=== PATIENT | female | born 1985 | race Caucasian/White ===

== ENCOUNTER 2022-06-15 13:20 | Outpatient (CLI) | payer OTHER, SELFPAY ==
[2022-06-15 17:21] LABS: Chloride* 106 mmol/L (96-114)
[2022-06-15 17:22] LABS: Potassium* 4.7 mmol/L (3.6-5.1); Sodium* 139 mmol/L (135-149)
[2022-06-15 17:24] LABS: Cholesterol* 198 mg/dL (90-199)
[2022-06-15 17:25] LABS: Blood Urea Nitrogen* 8 mg/dL (5-24); Carbon Dioxide* 26 mmol/L (20-32); Creatinine* 0.7 mg/dL (0.5-1.5); Estimated Glomerular Filt Rate 114 ml/min; Glucose* 96 mg/dL (60-115); Triglycerides* 153 mg/dL (40-149)
[2022-06-15 17:26] LABS: Calcium* 9.5 mg/dL (8.4-10.6); HDL Cholesterol* 72 mg/dL (>=50); LDL Cholesterol Calculated 95 mg/dL (<100)
== END 2022-06-15 13:21 | disposition home or self-care (01) ==
PROVIDERS: Visit Provider Family Medicine
DX: Z13.29 Encounter for screening for other suspected endocrine disorder (principal); Z13.1 Encounter for screening for diabetes mellitus; Z13.6 Encounter for screening for cardiovascular disorders
CPT/HCPCS: 80048; 80061; 84439; 84443

== ENCOUNTER 2022-07-15 13:29 | Outpatient (CLI) | payer OTHER, SELFPAY | END 2022-07-15 13:30 | disposition home or self-care (01) | LOC: LONREF 13:30 | PROVIDERS: Visit Provider Nurse Practitioner Family | DX: Z01.818 Encounter for other preprocedural examination (principal); E66.9 Obesity, unspecified | CPT/HCPCS: 80048 ==

== ENCOUNTER 2023-05-03 17:20 | Outpatient (CLI) | payer BC, SELFPAY ==
--- NOTE | 2023-05-03 18:00 | CRLHL7_ITS ---
For Patients: As a result of the Century Cures Act, medical imaging exams and procedure reports are released immediately into your electronic medical record. You may view this report before your referring provider. If you have questions, please contact your health care provider. INDICATION: Right foot pain. COMPARISON: None. TECHNIQUE: A compression venous ultrasound exam was performed of the right lower extremity using flores-scale imaging, color Doppler and spectral Doppler analysis. FINDINGS: Sonographic imaging of the right lower extremity demonstrates normal compressibility and color Doppler venous blood flow within the common femoral, femoral, popliteal, and peroneal veins. The greater saphenous, deep femoral, and posterior tibial veins demonstrate normal compressibility. Limited imaging of the contralateral groin demonstrates a normal spectral waveform and color Doppler venous blood flow within the left common femoral vein. IMPRESSION: Negative for acute DVT in the right lower extremity. Dictated by Desire Glass MD @ 05/04/2023 2:44:52 AM (Electronically Signed)
== END 2023-05-03 17:21 | disposition home or self-care (01) ==
LOC: US 17:21
PROVIDERS: Visit Provider Family Medicine
DX: M79.671 Pain in right foot (principal)
CPT/HCPCS: 93971

== ENCOUNTER 2023-05-04 11:03 | Outpatient (CLI) | payer BC, SELFPAY | END 2023-05-04 11:04 | disposition home or self-care (01) | PROVIDERS: Visit Provider Family Medicine | DX: K52.9 Noninfective gastroenteritis and colitis, unspecified (principal); Z13.220 Encounter for screening for lipoid disorders; Z13.228 Encounter for screening for other metabolic disorders | CPT/HCPCS: 80053; 80061; 84443; 86231 ==

== ENCOUNTER 2023-05-10 08:08 | Outpatient (CLI) | payer BC, SELFPAY ==
--- NOTE | 2023-05-10 08:15 | CRLHL7_ITS ---
For Patients: As a result of the Century Cures Act, medical imaging exams and procedure reports are released immediately into your electronic medical record. You may view this report before your referring provider. If you have questions, please contact your health care provider. INDICATION: Chronic diarrhea COMPARISON: none TECHNIQUE: Real time flores scale imaging and color Doppler analysis was performed of the right upper quadrant. FINDINGS: The patient`s liver is of normal size and has uniform echogenicity. There is a normal appearance of the hepatic IVC and proximal abdominal aorta. There is no evidence of ascites. The gallbladder is of normal size and there is no evidence of intraluminal stones or sludge. The gallbladder wall measures 2 mm in thickness. The common bile duct is of normal size and measures 4 mm in diameter at the level of the chinedu hepatis. The pancreas appears normal. There is no evidence of a stone or hydronephrosis within the right kidney. The right kidney measures 12.1 cm in length. IMPRESSION: Normal right upper quadrant ultrasound. Dictated by Renny Monique MD @ 05/10/2023 11:51:51 AM (Electronically Signed)
== END 2023-05-10 08:09 | disposition home or self-care (01) ==
LOC: US 08:09
PROVIDERS: PCP Family Medicine; Visit Provider Family Medicine
DX: K52.9 Noninfective gastroenteritis and colitis, unspecified (principal)
CPT/HCPCS: 76705

== ENCOUNTER 2023-05-12 13:07 | Outpatient (CLI) | payer BC, SELFPAY | END 2023-05-12 13:08 | disposition home or self-care (01) | LOC: NFLDREF 05-13 11:12 | PROVIDERS: PCP Family Medicine; Referring Provider Family Medicine; Visit Provider Family Medicine | DX: K52.9 Noninfective gastroenteritis and colitis, unspecified (principal) | CPT/HCPCS: 87493; 87505 ==

== ENCOUNTER 2023-06-17 08:32 | Outpatient (CLI) | payer BC, SELFPAY ==
--- NOTE | 2023-06-17 09:59 | W.ANESCHARGE ---
Anesthesia Charges Start Date/Time Anesthesia Start Date: 06/17/23 Anesthesia Start Time: 09:43 Stop Date/Time Anesthesia Stop Date: 06/17/23 Anesthesia Stop Time: 10:06
--- NOTE | 2023-06-17 10:09 | W.ANESCHARGE ---
Anesthesia Charges Start Date/Time Anesthesia Start Date: 06/17/23 Anesthesia Start Time: 09:43 Stop Date/Time Anesthesia Stop Date: 06/17/23 Anesthesia Stop Time: 10:06
== END 2023-06-17 08:33 | disposition home or self-care (01) ==
PROVIDERS: PCP Family Medicine; Visit Provider Internal Medicine
DX: R10.84 Generalized abdominal pain (principal)
CPT/HCPCS: 00811; 45380; 88305; J2704

== ENCOUNTER 2023-07-27 19:55 | Outpatient (CLI) | payer BC, SELFPAY ==
--- NOTE | 2023-08-10 13:07 | W.PM.SLEEP ---
Sleep Study Details Details Interpreting Provider: Bird Date of Sleep Study: 07/27/23 Sleep Study Details: STUDY TYPE:? Home unattended ? BMI:? 40.8 ORDERING PROVIDER:Eliseo Narvaez INDICATION:? Concerns about sleep apnea ? SLEEP SUMMARY:? 604 minutes monitored RESPIRATORY SUMMARY:? AHI 9 Low oxygen 84 2.9% of study oxygen less than 90% Snoring 80.3% PERIODIC LIMB MOVEMENTS OF SLEEP:? Not recorded during home study CARDIAC:? Range 45-113, mean 58.8 IMPRESSION:? Mild obstructive sleep apnea RECOMMENDATION: Treatment options include CPAP dental appliance weight loss and/or airway expansion surgery.
== END 2023-07-27 19:56 | disposition home or self-care (01) ==
LOC: SLEEP 19:55
PROVIDERS: PCP Family Medicine; Visit Provider Family Medicine
DX: G47.33 Obstructive sleep apnea (adult) (pediatric) (principal)
CPT/HCPCS: 95806

== ENCOUNTER 2023-09-08 10:26 | Outpatient (CLI) | payer BC, SELFPAY | END 2023-09-08 10:27 | disposition home or self-care (01) | PROVIDERS: PCP Family Medicine; Visit Provider Family Medicine | DX: R00.0 Tachycardia, unspecified (principal) | CPT/HCPCS: 84443 ==

== ENCOUNTER 2023-10-06 08:33 | Outpatient (CLI) | payer BC, SELFPAY ==
--- NOTE | 2023-10-06 08:45 | CRLHL7_ITS ---
For Patients: As a result of the Cures Act, medical imaging exams and procedure reports are released immediately into your electronic medical record. You may view this report before your referring provider. If you have questions, please contact your health care provider. DIGITAL DIAGNOSTIC BILATERAL MAMMOGRAM USING TOMOSYNTHESIS AND COMPUTER-AIDED DETECTION LEFT BREAST ULTRASOUND CLINICAL HISTORY: LEFT breast lump. COMPARISON: None. TECHNIQUE: Digital BILATERAL mammogram in four projections with computer-aided detection. Tomosynthesis was used in this interpretation. Real-time ultrasound imaging of LEFT breast with imaging documentation. BREAST COMPOSITION: There are areas of scattered fibroglandular density. FINDINGS: 3D CC/MLO BILATERAL mammogram images submitted. No suspicious mass or architectural distortion. No suspicious calcifications or adenopathy. Targeted LEFT breast ultrasound performed at 3 o`clock 4 cm from the nipple. In this location, there is a small ovoid hypoechoic cystic area located within the epidermal layer measuring 10 x 4 x 7 millimeters. IMPRESSION: Epidermal cyst measuring 10 x 4 x 7 millimeters LEFT breast 3 o`clock 4 cm from the nipple. No suspicious findings. No evidence of malignancy. RECOMMENDATIONS: Clinical follow-up. Age-appropriate screening mammography. Results and recommendations discussed with the patient. BI-RADS Category 2: Benign A lay language report of this examination will be provided to the patient. Dictated by Renny Monique MD @ 10/06/2023 10:13:22 AM /Dictated by: Renny Monique MD @ 10/06/2023 10:13:00 AM (Electronically Signed)
--- NOTE | 2023-10-06 09:15 | CRLHL7_ITS ---
For Patients: As a result of the Cures Act, medical imaging exams and procedure reports are released immediately into your electronic medical record. You may view this report before your referring provider. If you have questions, please contact your health care provider. PLEASE SEE DIGITAL DIAGNOSTIC BILATERAL MAMMOGRAM PERFORMED THE SAME DAY. CRL:[email or web address] silvestre/Dictated by: Renny Monique MD @ 10/06/2023 10:13:00 AM SP/Dictated by: Renny Monique MD @ 10/06/2023 10:13:00 AM (Electronically Signed)
== END 2023-10-06 08:34 | disposition home or self-care (01) ==
LOC: MAMMO 08:34
PROVIDERS: PCP Family Medicine; Visit Provider Family Medicine
DX: N63.20 Unspecified lump in the left breast, unspecified quadrant (principal); N60.02 Solitary cyst of left breast
CPT/HCPCS: 76642; 77066; G0279

== ENCOUNTER 2023-11-14 08:51 | Outpatient (CLI) | payer BC, SELFPAY | END 2023-11-14 08:52 | disposition home or self-care (01) | LOC: RAD 08:52 | PROVIDERS: PCP Family Medicine; Visit Provider Internal Medicine | DX: R00.0 Tachycardia, unspecified (principal); I35.1 Nonrheumatic aortic (valve) insufficiency; I34.0 Nonrheumatic mitral (valve) insufficiency; R00.2 Palpitations | CPT/HCPCS: 93306 ==

== ENCOUNTER 2024-05-25 12:04 | Outpatient (CLI) | payer BC, SELFPAY ==
[2024-05-28 20:47] LABS: HPV Source Cervical; HPV, High Risk by TMA Not Detected
== END 2024-05-25 12:05 | disposition home or self-care (01) ==
PROVIDERS: PCP Family Medicine; Visit Provider Obstetrics & Gynecology
DX: Z12.4 Encounter for screening for malignant neoplasm of cervix (principal); Z11.51 Encounter for screening for human papillomavirus (HPV)
CPT/HCPCS: 87624; 87625; 88141; 88142

== ENCOUNTER 2024-06-11 15:56 | Outpatient (CLI) | payer BC, SELFPAY | END 2024-06-11 15:57 | disposition home or self-care (01) | PROVIDERS: PCP Family Medicine; Visit Provider Family Medicine | DX: I10 Essential (primary) hypertension (principal); F33.9 Major depressive disorder, recurrent, unspecified; Z13.6 Encounter for screening for cardiovascular disorders; Z13.1 Encounter for screening for diabetes mellitus | CPT/HCPCS: 80053; 80061; 82043; 82570 ==

== ENCOUNTER 2024-11-26 16:44 | Outpatient (CLI) | payer BC, SELFPAY | END 2024-11-26 16:45 | disposition home or self-care (01) | PROVIDERS: PCP Family Medicine; Visit Provider Family Medicine | DX: I10 Essential (primary) hypertension (principal); Z01.818 Encounter for other preprocedural examination | CPT/HCPCS: 80048; 85025 ==

== ENCOUNTER 2024-11-28 08:58 | Day surgery (SDC) | payer BC, SELFPAY ==
[2024-11-28 09:07] VITALS: BMI 43.4
[2024-11-28 09:23] LABS: Ur HCG Qualitative* Negative (Negative)
[2024-11-28 09:25] VITALS: BP 119/71; PULSE 84; RESP 16; TEMP 36.4; O2SAT 97
[2024-11-28] MEDS: LACTATED RINGERS 1000 ML 1,000 ML 100 ML IV (09:36)
[2024-11-28] MEDS: SODIUM CHLORIDE 0.9 % (FLUSH) 10 ML SYRINGE IVF (09:36)
--- NOTE | 2024-11-28 10:18 | W.PODPROC_ITS ---
Date of Procedure: 11/28/24 Time Seen by Provider: 10:18 Surgeon: Diamond Buchanan DPM Co-Surgeon: Michael Schuster DPM Pre-op Diagnosis: 1. Left foot wart, 3rd dig Post-op Diagnosis: 1. Left foot wart, 3rd dig Type of Procedure: 1. Wart excision left 3rd dig 2. Application of skin graft substitute left foot Procedure Description: The patient was brought from the preoperative holding area to the operating room, and placed on the operating room table in the supine positions. At this time, a timeout was performed and operating room staff to identify the proper patient, site and operation to be performed. A well padded pneumatic ankle tourniquet was applied to the patient's left ankle. A preoperative injection of 10 cc of 0.25% Marcaine plain was administered in a ray block type fashion? to the patient's left foot. The left foot was then scrubbed, prepped and draped in the normal sterile fashion. The left lower extremity was elevated for exsanguination, and the pneumatic ankle tourniquet was inflated to a level of 250 millimeters of mercury. Attention was directed to the plantar surface of the left 3rd toe, where a verrucous lesion measuring approximately 1.5 cm x 1.5 cm was noted. The lesion was sharply excised down to the subcutaneous tissue using a #15 blade. Hemostasis was achieved with gentle pressure and electrocautery. Following excision, the wound bed was irrigated with sterile saline. An [place] wound matrix was then carefully trimmed to fit the defect and applied directly over the wound. The graft was secured in place with interrupted 4-0 nylon sutures. A non-adherent dressing was placed over the graft, and a bolster dressing was applied using sterile cotton balls and additional sutures to maintain gentle compression and ensure graft adherence. The foot was wrapped with sterile gauze, cling and MADDISON for support and protection. The patient tolerated the procedure well, with no complications. Anesthesia: MAC (10cc of marcaine plain 0.25%) and local Hemostasis: ankle Estimated blood loss (mL): 5 Implants: [place] skin graft substitute Specimens: none sent Disposition: PACU
[2024-11-28] MEDS: BACITRACIN OINTMENT BULK TUBE 1 APPLIC TOPICAL (10:50)
[2024-11-28] MEDS: BUPIVACAINE 0.25% 30 ML INJECTION (11:28)
[2024-11-28 11:40] VITALS: BP 135/87; PULSE 59; RESP 16; TEMP 36.1; O2SAT 97
--- NOTE | 2024-11-28 11:45 | P.ANES_ITS ---
Anesthesia Charges Start Date/Time Anesthesia Start Date: 11/28/24 Anesthesia Start Time: 10:19 Stop Date/Time Anesthesia Stop Date: 11/28/24 Anesthesia Stop Time: 11:42 Coding CPT Codes CPT Codes: ANESTH LOWER LEG PROCEDURE - 06254 ([id number]) P3 - PATIENT W/SEVERE SYS DISEASE, QK - AUTOMATIC FOLDER SEAMER 2-4 CNCRNT ANES PROC, QX - LOOP MACHINE OPERATOR SVC W/ MD MED DIRECTION
--- NOTE | 2024-11-28 11:45 | W.ANESCHARGE ---
Anesthesia Charges Start Date/Time Anesthesia Start Date: 11/28/24 Anesthesia Start Time: 10:19 Stop Date/Time Anesthesia Stop Date: 11/28/24 Anesthesia Stop Time: 11:42 Coding CPT Codes CPT Codes: ANESTH LOWER LEG PROCEDURE - 52613 ([id number]) P3 - PATIENT W/SEVERE SYS DISEASE, QK - DESIGN TRANSFERRER 2-4 CNCRNT ANES PROC, QX - MUD ANALYSIS WELL LOGGING CAPTAIN SVC W/ MD MED DIRECTION
[2024-11-28 11:55] VITALS: BP 118/81; PULSE 57; RESP 16; O2SAT 100
--- NOTE | 2024-11-28 12:04 | P.ANES_ITS ---
Anesthesia Charges Start Date/Time Anesthesia Start Date: 11/28/24 Anesthesia Start Time: 10:19 Stop Date/Time Anesthesia Stop Date: 11/28/24 Anesthesia Stop Time: 11:42 Coding CPT Codes CPT Codes: ANESTH LOWER LEG PROCEDURE - 49208 ([id number]) QK - SUPERVISING EDITOR TRAILER 2-4 CNCRNT ANES PROC, QX - VARNISH MELTER SVC W/ MD MED DIRECTION, P3 - PATIENT W/SEVERE SYS DISEASE
--- NOTE | 2024-11-28 12:04 | W.ANESCHARGE ---
Anesthesia Charges Start Date/Time Anesthesia Start Date: 11/28/24 Anesthesia Start Time: 10:19 Stop Date/Time Anesthesia Stop Date: 11/28/24 Anesthesia Stop Time: 11:42 Coding CPT Codes CPT Codes: ANESTH LOWER LEG PROCEDURE - 36507 ([id number]) QK - CURB HOP 2-4 CNCRNT ANES PROC, QX - HEAD COACH SVC W/ MD MED DIRECTION, P3 - PATIENT W/SEVERE SYS DISEASE
[2024-11-28 12:10] VITALS: BP 129/84; PULSE 62; RESP 16; O2SAT 98
[2024-11-28 12:25] VITALS: BP 116/65; PULSE 64; RESP 16; TEMP 36.4; O2SAT 96
== END 2024-11-28 12:35 | disposition home or self-care (01) ==
LOC: OR 08:59
PROVIDERS: Anesthesiology; PCP Family Medicine; Visit Provider Podiatrist
PROC: (CPT 11423; principal; 2024-11-28 10:15)
DX: B07.0 Plantar wart (principal)
CPT/HCPCS: 11423; 15275; 00400; 01462; 81025; J0665; J0690; J1100; J1885; J2405; J2704; J3010; J3490; J7120; Q4100

== ENCOUNTER 2024-12-26 11:39 | Day surgery (SDC) | payer BC, SELFPAY ==
[2024-12-26] VITALS (8 sets, daily range): BP systolic 111–132; BP diastolic 74–94; PULSE 75–86; RESP 16; TEMP 36.1–36.6; O2SAT 97–100; BMI 44.6
[2024-12-26] MEDS: BUPIVACAINE 0.25% 30 ML 10 ML INJECTION (14:01)
--- NOTE | 2024-12-27 09:38 | W.PODPROC_ITS ---
Date of Procedure: 12/26/24 Time Seen by Provider: 13:30 Surgeon: Diamond Buchanan DPM Pre-op Diagnosis: 1. Ulcer left 3rd digit to the level of the subcutaneous layer 2. Wart left 3rd digit Post-op Diagnosis: 1. Ulcer left 3rd digit to the level of the subcutaneous layer 2. Wart left 3rd digit Type of Procedure: 1. Ulcer debridement <20 sq cm down to the level of the subcutaneous layer 2. Application of skin graft substitute 3. Excision of wart 3rd digit left foot Procedure Description: The patient was brought from the preoperative holding area to the operating room, and placed on the operating room table in the supine positions. At this time, a timeout was performed and operating room staff to identify the proper patient, site and operation to be performed. A preoperative injection of 4 cc of 0.25% Marcaine plain was administered in a digital block type fashion? to the patient's left foot. The left foot was then scrubbed, prepped and draped in the normal sterile fashion. Attention was directed to the plantar distal surface of the left 3rd toe, where a recurrent verrucous lesion measuring approximately 0.2 cm x 0.2 cm was noted. The lesion was sharply excised down to the subcutaneous tissue using a #15 blade. Hemostasis was achieved with gentle pressure. Attention was then directed to the plantar proximal left 3rd digit where the known ulcer was located. Sharp excision debridement using a #15 blade down to the level of the subcutaneous layer was performed and the wound then measured 0.3 cm x 0.4cm x 0.2cm. The wound beds was irrigated with sterile saline. An [place] wound matrix was then carefully trimmed to fit the defect and applied directly over the wound. The graft was secured in place with a non-adherent dressing was placed over the graft, and a bolster dressing was applied using sterile cotton balls and additional sutures to maintain gentle compression and ensure graft adherence. The foot was wrapped with sterile gauze, cling and MADDISON for support and protection. The patient tolerated the procedure well, with no complications. Anesthesia: local Hemostasis: other Estimated blood loss (mL): 3 Specimens: none sent Disposition: same day
== END 2024-12-26 14:49 | disposition home or self-care (01) ==
LOC: OR 11:41
PROVIDERS: PCP Family Medicine; Visit Provider Podiatrist
PROC: (CPT 11042; principal; 2024-12-26 13:00)
DX: L97.522 Non-pressure chronic ulcer of other part of left foot with fat layer exposed (principal); B07.0 Plantar wart
CPT/HCPCS: 11042; 11420; J0665; Q4100